=== PATIENT | female | born 1945 | race Two or more races ===

== ENCOUNTER 2020-10-27 14:45 | Emergency (ER) | payer OTHER ==
[~2020-10-27] VITALS: Ht 152.4 cm; Wt 45.4 kg
[2020-10-27] MEDS ORDERED: SYNTHROID100 MCG (15:29)
== END 2020-10-27 21:32 | disposition home or self-care (01) ==
LOC: ER 14:45
DX: R10.32 Left lower quadrant pain (principal); K62.5 Hemorrhage of anus and rectum

== ENCOUNTER 2021-09-02 12:38 | Emergency (ER) | payer OTHER ==
[~2021-09-02] VITALS: Ht 149.9 cm; Wt 54.9 kg
[~2021-09-02 12:38] MED LIST: SYNTHROID100 MCG
[2021-09-02] MEDS ORDERED: ESTAZOLAM2 MG (12:52)
[2021-09-02] MEDS ORDERED: FAMOTIDINE40 MG PO (12:52)
[2021-09-02] MEDS ORDERED: VITAMIN D3250 MCG PO (12:53)
[2021-09-02] MEDS ORDERED: ALENDRONATE SOD70 MG PO (12:54)
== END 2021-09-03 04:44 | disposition home or self-care (01) ==
LOC: ER 12:38
DX: K52.9 Noninfective gastroenteritis and colitis, unspecified (principal); N39.0 Urinary tract infection, site not specified; K57.92 Diverticulitis of intestine, part unspecified, without perforation or abscess without bleeding